=== PATIENT | male | born 1965 | race Caucasian/White ===

== ENCOUNTER 2017-02-16 17:12 | Emergency (ER) | payer BC ==
[2017-02-16 17:25] VITALS: BP 135/86
--- NOTE | 2017-02-16 17:42 | UC ---
Throat Pain/Nasal [place] HPI - HPI Summary HPI Summary: 1 week of worsening sinus pain, head congestion and fatigue - History of Current Complaint Chief Complaint: UCRespiratory Stated Complaint: SINUS CONGESTION Time Seen by Provider: 02/16/17 17:31 Hx Obtained From: Patient Onset/Duration: Gradual Onset, Lasting Weeks - 7, Worse Since - gatting worse every day Severity: Moderate Pain Intensity: 7 Pain Scale Used: 0-10 Numeric Cough: None Associated Signs & Symptoms: Positive: Sinus Discomfort Related History: Smoking - chews tobacco - Allergies/Home Medications Allergies/Adverse Reactions: Allergies Allergy/AdvReac Type Severity Reaction Status Date / Time Glipizide Allergy Rash and Verified 02/16/17 17:20 hives Penicillins [PCN] Allergy Rash and Verified 02/16/17 17:20 hives Procaine [From Novocain] Allergy Unknown Verified 02/16/17 17:20 Reaction Details PMH/Surg Hx/FS Hx/Imm Hx Previously Healthy: No Endocrine History: Diabetes, Dyslipidemia GI/ History: Gastroesophageal Reflux Psychological History: Depression - Surgical History Surgical History: None - Family History Known Family History: Positive: None - Social History Occupation: Employed Full-time Lives: With Family Alcohol Use: Occasionally Substance Use Type: None Smoking Status (MU): Never Smoked Tobacco Review of Systems Constitutional: Fatigue Skin: Negative Eyes: Negative ENT: Sinus Congestion, Sinus Pain/Tenderness Respiratory: Negative Cardiovascular: Negative Gastrointestinal: Negative Genitourinary: Negative Motor: Negative Neurovascular: Negative Musculoskeletal: Negative Neurological: Headache Psychological: Negative Is Patient Immunocompromised?: Yes - iddm All Other Systems Reviewed And Are Negative: Yes Physical Exam Triage Information Reviewed: Yes Appearance: No Pain Distress, Ill-Appearing - mild, Obese Vital Signs: Initial Vital Signs Temp 98 F 02/16/17 17:23 Pulse 92 02/16/17 17:23 Resp 18 02/16/17 17:23 BP 135/86 02/16/17 17:23 Pulse Ox 100 02/16/17 17:23 Vital Signs Reviewed: Yes Eye Exam: Normal Eyes: Positive: Conjunctiva Clear ENT Exam: Normal ENT: Positive: Normal ENT inspection, Hearing grossly normal, Pharynx normal, Nasal congestion, TMs normal. Negative: Nasal drainage, Tonsillar swelling, Tonsillar exudate, Trismus, Muffled/hoarse voice Dental Exam: Normal Neck exam: Normal Neck: Positive: Supple, Nontender Respiratory Exam: Normal Respiratory: Positive: Chest non-tender, Lungs clear, Normal breath sounds, No respiratory distress, No accessory muscle use Cardiovascular Exam: Normal Cardiovascular: Positive: RRR, No Murmur, Pulses Normal, Brisk Capillary Refill Musculoskeletal Exam: Normal Musculoskeletal: Positive: Strength Intact, ROM Intact, No Edema Neurological Exam: Normal Neurological: Positive: Alert, Muscle Tone Normal Psychological Exam: Normal Throat Pain/Nasal Course/Dx - Course Assessment/Plan: continue nasal spray, mucinex, decongestant, add Zithromax, follow blood sugars , follow with pcp - Differential Dx/Diagnosis Differential Diagnosis/HQI/PQRI: Influenza, Laryngitis, Peritonsillar Abscess, Pharyngitis, Sinusitis, URI Provider Diagnoses: Acute rhinosinusitis, nicotine dependent Discharge - Discharge Plan Condition: Stable Disposition: HOME Prescriptions: Azithromycin TAB* [Zithromax TAB (Z-MANUEL) 250 mg #6 tabs] 2 tab PO .TODAY, THEN 1 DAILY #1 manuel Patient Education Materials: Rhinosinusitis (ED), How to Use Nasal [place] (ED) Referrals: Alcides Reyes [employer] [Primary Care Provider] - If Needed
== END 2017-02-16 17:53 | disposition home or self-care (01) ==
LOC: UCEAST 17:12
DX: J01.90 Acute sinusitis, unspecified (principal); E11.9 Type 2 diabetes mellitus without complications; E78.5 Hyperlipidemia, unspecified; K21.9 Gastro-esophageal reflux disease without esophagitis; F32.9 Major depressive disorder, single episode, unspecified; F17.210 Nicotine dependence, cigarettes, uncomplicated; Z88.4 Allergy status to anesthetic agent; Z88.0 Allergy status to penicillin
CPT/HCPCS: 99212; G0463

== ENCOUNTER 2021-06-14 07:47 | Inpatient (IN) ==
[2021-06-14] MEDS ORDERED: NS 0.9% 1000 ml BAG 1,000 ML IV ONE (08:08)
[2021-06-14] MEDS ORDERED: NS 0.9% 1000 ml BAG 2,000 ML IV ONE (08:25)
[2021-06-14] MEDS ORDERED: Dextrose 50% Syringe 50 ml 25 GM/50 ML SYRINGE IV PUSH ONE (08:58)
[2021-06-14 09:00] LABS: PO2 Arterial 84 mmHg (80-100)
[2021-06-14] MEDS ORDERED: Dextrose 50% Syringe 50 ml 25 GM/50 ML SYRINGE ONE (09:00)
[2021-06-14 09:03] LABS: PCO2 Arterial <20 mmHg (35-45)
[2021-06-14 09:18] LABS: ABS Lymphocytes 0.4 10^3/ul (1.0-4.8); ABS Monocytes 0.8 10^3/ul (0-0.8); ABS Neutrophils 9.5 10^3/ul (1.5-7.7); Hematocrit 55 % (42-52); Hemoglobin 19.2 g/dL (14.0-18.0); Lymphocyte % 4.1 %; Mean Corpuscular HGB Conc 35 g/dL (31-36); Mean Corpuscular Hemoglobin 32 pg (27-31); Mean Corpuscular Volume 90 fL (80-94); Mean Platelet Volume 8.2 fL (7.4-10.4); Nucleated Red Blood Cells % 0.1; Platelet Count 229 10^3/uL (150-450); Red Cell Distribution Width 14 % (10-15); White Blood Count 10.8 10^3/uL (3.5-10.8)
[2021-06-14 09:26] LABS: Activated Partial Thrombo Time 28.3 seconds (26.0-38.0); INR 0.96 (0.86-1.15)
[2021-06-14 09:44] LABS: ALT 26 U/L (7-52); AST 43 U/L (13-39); Albumin 4.6 g/dL (3.2-5.2); Albumin/Globulin Ratio 1.1 (1-3); Alkaline Phosphatase 132 U/L (35-149); Blood Urea Nitrogen 48 mg/dL (6-24); Chloride 94 mmol/L (101-111); Globulin 4.2 g/dL (2-4); Glucose 296 mg/dL (70-100); Lipase 39 U/L (11.0-82.0); Magnesium 2.6 mg/dL (1.9-2.7); Sodium 131 mmol/L (135-145); Total Protein 8.8 g/dL (6.4-8.9); Troponin I 0.04 ng/mL (<0.03); eGFR CKD-EPI 34.5 (>60)
[2021-06-14 09:57] LABS: Anion Gap 24 mmol/L (2-11); CO2 Carbon Dioxide 13 mmol/L (22-32)
[2021-06-14] MEDS ORDERED: Dexamethasone IV 4 MG/ML VIAL 1 ml VIAL IV SLOW PU ONE (10:00)
[2021-06-14] MEDS ORDERED: Cefepime 1 GM in Dextrose 1 GM/50 ML BAG IV ONE (10:16)
[2021-06-14 10:28] LABS: TSH Ultra Thyroid Stim Horm 0.63 mcIU/mL (0.34-5.60)
[2021-06-14 10:44] LABS: Osmolality Serum 320 mOsm/kg (275-295)
[2021-06-14 11:01] LABS: Urine Benzodiazepine Screen None Detected (None Detect); Urine Cannabinoids Screen None Detected (None Detect); Urine Opiates Screen None Detected (None Detect)
[2021-06-14 11:05] LABS: Urine Appearance Clear; Urine Blood 2+ (Negative); Urine Color Yellow; Urine Ketones 1+ (Negative); Urine Nitrite Negative (Negative); Urine Protein 1+(30 mg/dL) (Negative); Urine Urobilinogen Negative (Negative); Urine pH 6 (5-9)
[2021-06-14 11:06] LABS: Urine Bilirubin Negative (Negative); Urine Glucose 2+(150 mg/dL) (Negative)
[2021-06-14 11:13] LABS: Urine Bacteria Absent (Absent); Urine Red Blood Cell Trace(0-2/hpf) (Absent); Urine White Blood Cell Trace(0-5/hpf) (Absent)
[2021-06-14] MEDS ORDERED: NORMOSOL-R pH 7.4 1000 mL BAG 1,000 ML IV ONE (13:21)
[2021-06-14] MEDS ORDERED: KCL 20 MEQ/100 ML IVPREMIX 20 MEQ/100 ML BAG IV ONE ×2 (13:48→13:59)
[2021-06-14] MEDS ORDERED: Insulin Infusion 100unit/100mL 100 UNIT/100 ML BAG IV SCH ×2 (14:00→19:25)
[2021-06-14] MEDS ORDERED: Lorazepam PYXIS KEY PRN ×2 (14:03→16:45)
[2021-06-14] MEDS ORDERED: LORazepam 2 mg VIAL 1 ml IV PUSH ONE ×2 (14:03→16:45)
[2021-06-14] MEDS ORDERED: Lorazepam PYXIS KEY ONE (14:29)
[2021-06-14] MEDS: Enoxaparin 40 MG/0.4 ML SYR SUBCUT SCH (14:31)
[2021-06-14 14:46] LABS: Albumin/Globulin Ratio 1.3 (1-3); Calcium 8.8 mg/dL (8.6-10.3); Globulin 3.2 g/dL (2-4); Magnesium 2.5 mg/dL (1.9-2.7); Phosphorus 1.8 mg/dL (2.5-5.0); Total Bilirubin 0.5 mg/dL (0.2-1.0); Total Protein 7.2 g/dL (6.4-8.9); eGFR CKD-EPI 41.7 (>60)
[2021-06-14 14:47] LABS: Troponin I 0.01 ng/mL (<0.03)
[2021-06-14] MEDS ORDERED: NORMOSOL-R pH 7.4 1000 mL BAG 1,000 ML IV SCH (15:00)
[2021-06-14 15:51] LABS: Hematocrit 48 % (42-52); Hemoglobin 16.9 g/dL (14.0-18.0); Mean Corpuscular HGB Conc 35 g/dL (31-36); Mean Corpuscular Hemoglobin 32 pg (27-31); Mean Corpuscular Volume 91 fL (80-94); Red Blood Count 5.34 10^6 /uL (4.18-5.48); Red Cell Distribution Width 14 % (10-15); White Blood Count 9.9 10^3/uL (3.5-10.8)
[2021-06-14] MEDS ORDERED: LORazepam 2 mg VIAL 1 ml ONE (16:31)
[2021-06-14] MEDS ORDERED: Potassium Phosphate IV 15 MMOLE in NS 0.9% 250 ml 250 ML IVPB ONE (17:00)
[2021-06-14] MEDS ORDERED: cefTRIAXone 1 gm/50 mL NS BAG 1 GM/50 ML BAG IVPB SCH (17:00)
[2021-06-14 17:08] LABS: PO2 Arterial 81 mmHg (80-100)
[2021-06-14 17:15] LABS: PCO2 Arterial <20 mmHg (35-45)
[2021-06-14 17:17] LABS: Urine Appearance Clear; Urine Bilirubin Negative (Negative); Urine Blood 2+ (Negative); Urine Color Yellow; Urine Glucose 3+(>=500 mg/dL) (Negative); Urine Ketones 2+ (Negative); Urine Nitrite Negative (Negative); Urine Protein 2+(100 mg/dL) (Negative); Urine Specific Gravity 1.026 (1.002-1.030); Urine Urobilinogen Negative (Negative)
[2021-06-14 17:38] LABS: ABS Lymphocytes 0.4 10^3/ul (1.0-4.8); ABS Monocytes 0.7 10^3/ul (0-0.8); ABS Neutrophils 8.8 10^3/ul (1.5-7.7); Lymphocyte % 4.1 %; Mean Platelet Volume 8.7 fL (7.4-10.4); Nucleated Red Blood Cells % 0.3; Platelet Count 200 10^3/uL (150-450)
[2021-06-14 17:51] LABS: Urine Bacteria Absent (Absent); Urine Red Blood Cell 1+(3-5/hpf) (Absent); Urine White Blood Cell Trace(0-5/hpf) (Absent)
[2021-06-14] MEDS: cefTRIAXone 1 gm/50 mL NS BAG 1 GM/50 ML BAG IVPB SCH (18:09)
[2021-06-14 18:41] LABS: Magnesium 2.6 mg/dL (1.9-2.7); Phosphorus 1.6 mg/dL (2.5-5.0); Potassium 3.5 mmol/L (3.5-5.0); eGFR CKD-EPI 43.3 (>60)
[2021-06-14 18:56] LABS: Calcium 9.1 mg/dL (8.6-10.3)
[2021-06-14] MEDS: Azithromycin 500 mg/250 ml NS 500 MG/250 ML BAG IVPB SCH (19:31)
[2021-06-14] MEDS: Saline FLUSH-CENTRAL 10 ML SYRINGE CENT\\PICC SCH (19:59)
[2021-06-14] MEDS ORDERED: D5W 1/2 NS 40 Meq KCL 1000 ml 1,000 ML IV SCH (20:00)
[2021-06-14] MEDS ORDERED: D5W 1/4 NS 20 Meq KCL 1000 ml 1,000 ML IV SCH (20:00)
[2021-06-14] MEDS: KCL 20 MEQ/100 ML IVPREMIX 20 MEQ/100 ML BAG IV SCH ×2 (20:46→23:23)
[2021-06-14 22:06] LABS: Calcium 8.9 mg/dL (8.6-10.3); Magnesium 2.7 mg/dL (1.9-2.7); Phosphorus 2.6 mg/dL (2.5-5.0); Potassium 3.5 mmol/L (3.5-5.0); eGFR CKD-EPI 44.8 (>60)
[2021-06-14] MEDS: Insulin Infusion 100unit/100mL 100 UNIT/100 ML BAG IV SCH (23:27)
[2021-06-15] MEDS: KCL 20 MEQ/100 ML IVPREMIX 20 MEQ/100 ML BAG IV SCH ×4 (01:33→08:46)
[2021-06-15 01:47] LABS: Calcium 9.2 mg/dL (8.6-10.3); Magnesium 2.8 mg/dL (1.9-2.7); Phosphorus 2.6 mg/dL (2.5-5.0); Potassium 3.4 mmol/L (3.5-5.0); eGFR CKD-EPI 43.6 (>60)
[2021-06-15] MEDS ORDERED: D10W 1000 ml BAG 1,000 ML IV SCH ×3 (03:00→07:29)
[2021-06-15] MEDS: Dextrose 50% Syringe 50 ml 25 GM/50 ML SYRINGE IV PUSH PRN ×2 (03:29→08:23)
[2021-06-15 05:26] LABS: ABS Lymphocytes 0.6 10^3/ul (1.0-4.8); ABS Neutrophils 8.1 10^3/ul (1.5-7.7); Hematocrit 52 % (42-52); Hemoglobin 17.6 g/dL (14.0-18.0); Mean Corpuscular HGB Conc 34 g/dL (31-36); Mean Corpuscular Hemoglobin 31 pg (27-31); Mean Corpuscular Volume 92 fL (80-94); Mean Platelet Volume 8.3 fL (7.4-10.4); Nucleated Red Blood Cells % 0.3; Platelet Count 195 10^3/uL (150-450); Red Blood Count 5.61 10^6 /uL (4.18-5.48); Red Cell Distribution Width 14 % (10-15); White Blood Count 9.7 10^3/uL (3.5-10.8)
[2021-06-15 05:37] LABS: Albumin 3.9 g/dL (3.2-5.2); Albumin/Globulin Ratio 1.2 (1-3); Calcium 9.1 mg/dL (8.6-10.3); Globulin 3.3 g/dL (2-4); Magnesium 2.7 mg/dL (1.9-2.7); Phosphorus 1.6 mg/dL (2.5-5.0); Potassium 3.5 mmol/L (3.5-5.0); Total Bilirubin 0.4 mg/dL (0.2-1.0); Total Protein 7.2 g/dL (6.4-8.9)
[2021-06-15] MEDS ORDERED: Potassium Phosphate IV 15 MMOLE in NS 0.9% 250 ml 250 ML IVPB ONE (05:38)
[2021-06-15] MEDS: Insulin Infusion 100unit/100mL 100 UNIT/100 ML BAG IV SCH (06:45)
[2021-06-15] MEDS: Saline FLUSH-CENTRAL 10 ML SYRINGE CENT\\PICC SCH ×2 (08:40→20:34)
[2021-06-15] MEDS ORDERED: DULoxetine DR 60 mg CAP PO SCH (09:00)
[2021-06-15 09:04] LABS: PCO2 Arterial 24 mmHg (35-45); PO2 Arterial 76 mmHg (80-100)
[2021-06-15 09:06] LABS: Blood Urea Nitrogen 28 mg/dL (6-24); Chloride 80 mmol/L (101-111); Magnesium 1.5 mg/dL (1.9-2.7); Phosphorus 15.7 mg/dL (2.5-5.0); eGFR CKD-EPI 73.6 (>60)
[2021-06-15 09:13] LABS: Anion Gap 9 mmol/L (2-11); CO2 Carbon Dioxide 9 mmol/L (22-32); Calcium 4.9 mg/dL (8.6-10.3); Potassium 8.4 mmol/L (3.5-5.0); Sodium 98 mmol/L (135-145)
[2021-06-15 09:26] LABS: Glucose > 2400 mg/dL (70-100); Glucose Confirmatory > 2400 mg/dL (70-100)
[2021-06-15 10:05] LABS: ABS Lymphocytes 0.6 10^3/ul (1.0-4.8); ABS Monocytes 1.5 10^3/ul (0-0.8); ABS Neutrophils 9.1 10^3/ul (1.5-7.7); Hematocrit 49 % (42-52); Lymphocyte % 5.5 %; Mean Corpuscular HGB Conc 35 g/dL (31-36); Mean Corpuscular Hemoglobin 31 pg (27-31); Mean Corpuscular Volume 90 fL (80-94); Mean Platelet Volume 8.1 fL (7.4-10.4); Nucleated Red Blood Cells % 0.1; Platelet Count 220 10^3/uL (150-450); Red Blood Count 5.45 10^6 /uL (4.18-5.48); Red Cell Distribution Width 14 % (10-15); White Blood Count 11.3 10^3/uL (3.5-10.8)
[2021-06-15 10:18] LABS: Albumin 3.9 g/dL (3.2-5.2); Albumin/Globulin Ratio 1.1 (1-3); Calcium 9.4 mg/dL (8.6-10.3); Globulin 3.4 g/dL (2-4); Magnesium 2.7 mg/dL (1.9-2.7); Potassium 3.1 mmol/L (3.5-5.0); Total Bilirubin 0.5 mg/dL (0.2-1.0); Total Protein 7.3 g/dL (6.4-8.9); eGFR CKD-EPI 49.1 (>60)
[2021-06-15] MEDS ORDERED: KCL 20 MEQ/100 ML IVPREMIX 20 MEQ/100 ML BAG IV ONE (10:30)
[2021-06-15] MEDS ORDERED: Dextrose 50% Syringe 50 ml 25 GM/50 ML SYRINGE IV PUSH ONE (10:36)
[2021-06-15] MEDS ORDERED: Insulin GLARGINE 100 un/ml 10 ml VIAL SUBCUT ONE ×2 (10:38→17:30)
[2021-06-15] MEDS: Enoxaparin 40 MG/0.4 ML SYR SUBCUT SCH (11:16)
[2021-06-15] MEDS ORDERED: Rocuronium 50 mg VIAL 10 mg/ml 5 ml VIAL (50 mg) ONE (14:41)
[2021-06-15 14:51] LABS: CO2 Carbon Dioxide 16 mmol/L (22-32); Calcium 8.7 mg/dL (8.6-10.3); Chloride 109 mmol/L (101-111); Magnesium 2.8 mg/dL (1.9-2.7); Sodium 140 mmol/L (135-145)
[2021-06-15 14:57] LABS: Blood Urea Nitrogen 41 mg/dL (6-24); Glucose 221 mg/dL (70-100); eGFR CKD-EPI 50.9 (>60)
[2021-06-15] MEDS ORDERED: Etomidate 40 mg/20 ml (2 MG/ML) 20 ml VIAL (40 mg) ONE (15:00)
[2021-06-15] MEDS ORDERED: Propofol 10 MG/ML 20 ML BTL ONE (15:00)
[2021-06-15 15:13] LABS: Anion Gap 15 mmol/L (2-11)
[2021-06-15] MEDS: fentaNYL 100 mcg/2 ml 50 MCG/ML VIAL IV SLOW PU PRN ×2 (15:56→20:23)
[2021-06-15] MEDS: Azithromycin 500 mg/250 ml NS 500 MG/250 ML BAG IVPB SCH (15:57)
[2021-06-15 16:09] LABS: Potassium, Whole Blood 4.7 mmol/L (3.4-4.5)
[2021-06-15] MEDS: cefTRIAXone 1 gm/50 mL NS BAG 1 GM/50 ML BAG IVPB SCH (16:43)
[2021-06-15] MEDS ORDERED: Dextrose 50% Syringe 50 ml 25 GM/50 ML SYRINGE IV PUSH PRN (17:29)
[2021-06-15] MEDS: Pantoprazole VIAL 40 MG VIAL IV SCH (17:54)
[2021-06-15] MEDS: Chlorhexidine MOUTHWASH 0.12% 15 ML UDC SWISH SPIT SCH ×2 (17:54→22:49)
[2021-06-15 20:54] LABS: Potassium 3.8 mmol/L (3.5-5.0); eGFR CKD-EPI 49.5 (>60)
[2021-06-15] MEDS: D5W 1/2 NS 1000 ml BAG 1,000 ML IV SCH (22:14)
[2021-06-15] MEDS: Insulin Infusion 100unit/100mL 100 UNIT/100 ML BAG IV ONE (22:42)
[2021-06-15] MEDS: methylPREDNISolone SOD 40 mg/ml 1 ml VIAL IV SCH (22:49)
[2021-06-16] MEDS: Insulin Infusion 100unit/100mL 100 UNIT/100 ML BAG IV ONE (02:33)
[2021-06-16] MEDS: Chlorhexidine MOUTHWASH 0.12% 15 ML UDC SWISH SPIT SCH ×6 (02:33→22:12)
[2021-06-16 02:38] LABS: Calcium 9.2 mg/dL (8.6-10.3); Potassium 3.3 mmol/L (3.5-5.0); eGFR CKD-EPI 52.5 (>60)
[2021-06-16] MEDS ORDERED: KCL 20 MEQ/100 ML IVPREMIX 20 MEQ/100 ML BAG IV ONE (03:35)
[2021-06-16] MEDS: D5W 1/2 NS 1000 ml BAG 1,000 ML IV SCH ×2 (05:10→10:43)
[2021-06-16] MEDS: methylPREDNISolone SOD 40 mg/ml 1 ml VIAL IV SCH ×2 (05:16→14:23)
[2021-06-16 06:05] LABS: ABS Lymphocytes 0.5 10^3/ul (1.0-4.8); ABS Monocytes 0.7 10^3/ul (0-0.8); ABS Neutrophils 8.6 10^3/ul (1.5-7.7); Hematocrit 46 % (42-52); Hemoglobin 16.1 g/dL (14.0-18.0); Mean Corpuscular HGB Conc 35 g/dL (31-36); Mean Corpuscular Hemoglobin 31 pg (27-31); Mean Corpuscular Volume 90 fL (80-94); Mean Platelet Volume 8.1 fL (7.4-10.4); Nucleated Red Blood Cells % 0.3; Platelet Count 213 10^3/uL (150-450); Red Blood Count 5.14 10^6 /uL (4.18-5.48); Red Cell Distribution Width 15 % (10-15); White Blood Count 9.8 10^3/uL (3.5-10.8)
[2021-06-16 06:30] LABS: Blood Urea Nitrogen 41 mg/dL (6-24); CO2 Carbon Dioxide 17 mmol/L (22-32); Glucose 186 mg/dL (70-100); Potassium 3.6 mmol/L (3.5-5.0); Sodium 140 mmol/L (135-145); eGFR CKD-EPI 54.6 (>60)
[2021-06-16 06:37] LABS: Anion Gap 9 mmol/L (2-11); Chloride 114 mmol/L (101-111)
[2021-06-16] MEDS: Midazolam 50 MG VIAL IV DRIP 50 ML IV SCH ×2 (07:05→16:24)
[2021-06-16 07:53] LABS: Magnesium 2.7 mg/dL (1.9-2.7)
[2021-06-16] MEDS ORDERED: Potassium Phosphate IV 15 MMOLE in NS 0.9% 250 ml 250 ML IVPB ONE (07:58)
[2021-06-16] MEDS ORDERED: Perflutren Lipid Microsphere 3 ML VIAL ONE (08:04)
[2021-06-16] MEDS ORDERED: Potassium Chlor 20 meq TAB.ER PO ONE (08:07)
[2021-06-16] MEDS ORDERED: Dextrose 50% Syringe 50 ml 25 GM/50 ML SYRINGE IV PUSH ONE (08:08)
[2021-06-16] MEDS ORDERED: Insulin GLARGINE 100 un/ml 10 ml VIAL SUBCUT ONE (08:09)
[2021-06-16] MEDS: KCL 20 MEQ/100 ML IVPREMIX 20 MEQ/100 ML BAG IV SCH ×2 (08:29→10:58)
[2021-06-16] MEDS: Saline FLUSH-CENTRAL 10 ML SYRINGE CENT\\PICC SCH ×2 (08:29→21:12)
[2021-06-16 08:42] LABS: Phosphorus < 1.0 mg/dL (2.5-5.0)
[2021-06-16 10:47] LABS: PCO2 Arterial 29 mmHg (35-45); PO2 Arterial 104 mmHg (80-100)
[2021-06-16] MEDS: fentaNYL 100 mcg/2 ml 50 MCG/ML VIAL IV SLOW PU PRN ×5 (10:56→22:30)
[2021-06-16] MEDS ORDERED: Insulin Infusion 100unit/100mL 100 UNIT/100 ML BAG IV SCH (11:00)
[2021-06-16] MEDS: Enoxaparin 40 MG/0.4 ML SYR SUBCUT SCH (12:23)
[2021-06-16 13:54] LABS: Calcium 7.7 mg/dL (8.6-10.3); Potassium 3.7 mmol/L (3.5-5.0)
[2021-06-16 14:53] LABS: Urine Appearance Turbid; Urine Bilirubin Negative (Negative); Urine Blood 2+ (Negative); Urine Color Yellow; Urine Glucose 3+(>=500 mg/dL) (Negative); Urine Ketones Negative (Negative); Urine Nitrite Negative (Negative); Urine Protein 1+(30 mg/dL) (Negative); Urine Specific Gravity 1.033 (1.002-1.030); Urine Urobilinogen Negative (Negative)
[2021-06-16 14:59] LABS: Urine Bacteria Absent (Absent); Urine Red Blood Cell 3+(>10/hpf) (Absent); Urine Squamous Epithelial Cell Present (Absent); Urine White Blood Cell Trace(0-5/hpf) (Absent)
[2021-06-16] MEDS: cefTRIAXone 1 gm/50 mL NS BAG 1 GM/50 ML BAG IVPB SCH (17:35)
[2021-06-16] MEDS: Azithromycin 500 mg/250 ml NS 500 MG/250 ML BAG IVPB SCH (17:36)
[2021-06-16] MEDS: Pantoprazole VIAL 40 MG VIAL IV SCH (17:36)
[2021-06-16] MEDS ORDERED: Dextrose 50% Syringe 50 ml 25 GM/50 ML SYRINGE IV PUSH PRN (22:20)
[2021-06-17] MEDS: fentaNYL 100 mcg/2 ml 50 MCG/ML VIAL IV SLOW PU PRN (00:25)
[2021-06-17] MEDS ORDERED: Dexmedetomidine 1,000 MCG in NS 0.9% 250 ml 240 ML IV SCH (02:00)
[2021-06-17] MEDS: Midazolam 50 MG VIAL IV DRIP 50 ML IV SCH (02:04)
[2021-06-17] MEDS: Chlorhexidine MOUTHWASH 0.12% 15 ML UDC SWISH SPIT SCH ×6 (02:32→20:47)
[2021-06-17 04:33] LABS: ABS Lymphocytes 0.5 10^3/ul (1.0-4.8); ABS Monocytes 1.3 10^3/ul (0-0.8); ABS Neutrophils 12.1 10^3/ul (1.5-7.7); Hematocrit 41 % (42-52); Hemoglobin 13.9 g/dL (14.0-18.0); Lymphocyte % 3.6 %; Mean Corpuscular HGB Conc 34 g/dL (31-36); Mean Corpuscular Hemoglobin 31 pg (27-31); Mean Corpuscular Volume 92 fL (80-94); Mean Platelet Volume 8.7 fL (7.4-10.4); Platelet Count 214 10^3/uL (150-450); Red Blood Count 4.43 10^6 /uL (4.18-5.48); Red Cell Distribution Width 15 % (10-15)
[2021-06-17 04:52] LABS: Calcium 8.6 mg/dL (8.6-10.3); Magnesium 2.5 mg/dL (1.9-2.7); eGFR CKD-EPI 42.8 (>60)
[2021-06-17 05:20] LABS: Potassium 4.8 mmol/L (3.5-5.0)
[2021-06-17 05:35] LABS: Phosphorus 1.8 mg/dL (2.5-5.0)
[2021-06-17] MEDS: Saline FLUSH-CENTRAL 10 ML SYRINGE CENT\\PICC SCH ×2 (07:41→20:49)
[2021-06-17] MEDS: methylPREDNISolone SOD 40 mg/ml 1 ml VIAL IV SCH (07:42)
[2021-06-17] MEDS ORDERED: Insulin GLARGINE 100 un/ml 10 ml VIAL SUBCUT ONE (09:05)
[2021-06-17] MEDS ORDERED: Propofol 10 MG/ML 20 ML BTL ONE (10:16)
[2021-06-17] MEDS ORDERED: Propofol 10 MG/ML 20 ML BTL IV PUSH ONE (10:45)
[2021-06-17] MEDS ORDERED: Potassium Phosphate IV 15 MMOLE in NS 0.9% 250 ml 250 ML IVPB ONE (11:00)
[2021-06-17] MEDS: Enoxaparin 40 MG/0.4 ML SYR SUBCUT SCH (12:40)
[2021-06-17] MEDS ORDERED: Propofol 10 mg/ml 100 ML BTL 100 ML ONE (16:10)
[2021-06-17] MEDS: Propofol 10 mg/ml 100 ML BTL 100 ML IV SCH ×2 (16:15→21:36)
[2021-06-17] MEDS: Azithromycin 500 mg/250 ml NS 500 MG/250 ML BAG IVPB SCH (16:54)
[2021-06-17] MEDS: Pantoprazole VIAL 40 MG VIAL IV SCH (17:46)
[2021-06-17] MEDS: cefTRIAXone 1 gm/50 mL NS BAG 1 GM/50 ML BAG IVPB SCH (18:14)
[2021-06-17] MEDS ORDERED: Insulin GLARGINE 100 un/ml 10 ml VIAL SUBCUT SCH (21:00)
[2021-06-17 23:57] LABS: Anaplasma phagocytophilum Negative (Negative); B. miyamotoi PCR, B Negative (Negative); Babesia divergens/MO-1 Negative (Negative); Babesia ducani Negative (Negative); Ehrlichia chaffeensis Negative (Negative); Ehrlichia ewingii/canis Negative (Negative); Ehrlichia muris eauclairensis Negative (Negative)
[2021-06-18] MEDS: Chlorhexidine MOUTHWASH 0.12% 15 ML UDC SWISH SPIT SCH ×6 (00:16→20:04)
[2021-06-18] MEDS: Acetaminophen IV 1 GM/100ML 100 ML IV PRN (00:16)
[2021-06-18] MEDS ORDERED: NS 0.9% 1000 ml BAG 1,000 ML IV SCH (03:45)
[2021-06-18] MEDS: Propofol 10 mg/ml 100 ML BTL 100 ML IV SCH ×5 (03:51→19:53)
[2021-06-18 05:00] LABS: Hematocrit 39 % (42-52); Hemoglobin 13.4 g/dL (14.0-18.0); Mean Corpuscular HGB Conc 34 g/dL (31-36); Mean Corpuscular Hemoglobin 31 pg (27-31); Mean Corpuscular Volume 91 fL (80-94); Platelet Count 220 10^3/uL (150-450); Red Cell Distribution Width 14 % (10-15); White Blood Count 10.8 10^3/uL (3.5-10.8)
[2021-06-18 05:06] LABS: ABS Lymphocytes 0.6 10^3/ul (1.0-4.8); ABS Monocytes 1.4 10^3/ul (0-0.8); ABS Neutrophils 8.7 10^3/ul (1.5-7.7); Eosinophil % 0.1 %; Lymphocyte % 5.8 %
[2021-06-18 05:16] LABS: Calcium 8.8 mg/dL (8.6-10.3); Magnesium 2.5 mg/dL (1.9-2.7); Potassium 4.2 mmol/L (3.5-5.0); eGFR CKD-EPI 37.6 (>60)
[2021-06-18] MEDS: methylPREDNISolone SOD 40 mg/ml 1 ml VIAL IV SCH (08:00)
[2021-06-18] MEDS: Saline FLUSH-CENTRAL 10 ML SYRINGE CENT\\PICC SCH ×2 (08:00→20:02)
[2021-06-18 11:59] LABS: Myoglobin 178.2 ng/mL (17.4-105.7)
[2021-06-18] MEDS ORDERED: Alteplase (CATHFLO) 2 MG VIAL IV ONE ×2 (13:58→13:59)
[2021-06-18] MEDS: cefTRIAXone 1 gm/50 mL NS BAG 1 GM/50 ML BAG IVPB SCH (17:38)
[2021-06-18] MEDS: Azithromycin 500 mg/250 ml NS 500 MG/250 ML BAG IVPB SCH (17:38)
[2021-06-18] MEDS: Pantoprazole VIAL 40 MG VIAL IV SCH (17:53)
[2021-06-18] MEDS: Enoxaparin 100 MG/ML SYR SUBCUT SCH (20:00)
[2021-06-18] MEDS: Insulin GLARGINE 100 un/ml 10 ml VIAL SUBCUT SCH (20:01)
[2021-06-18] MEDS ORDERED: Thiamine 100 MG/ML 2 ml VIAL 500 MG in NS 0.9% 250 ml 250 ML IV ONE (22:34)
[2021-06-19] MEDS: fentaNYL 100 mcg/2 ml 50 MCG/ML VIAL IV SLOW PU PRN ×6 (00:19→22:26)
[2021-06-19] MEDS: Chlorhexidine MOUTHWASH 0.12% 15 ML UDC SWISH SPIT SCH ×6 (00:26→22:26)
[2021-06-19] MEDS: Propofol 10 mg/ml 100 ML BTL 100 ML IV SCH ×9 (01:18→22:41)
[2021-06-19 05:35] LABS: Hematocrit 38 % (42-52); Hemoglobin 13.4 g/dL (14.0-18.0); Mean Corpuscular HGB Conc 35 g/dL (31-36); Mean Corpuscular Hemoglobin 33 pg (27-31); Mean Corpuscular Volume 94 fL (80-94); Mean Platelet Volume 8.4 fL (7.4-10.4); Platelet Count 246 10^3/uL (150-450); Red Blood Count 4.05 10^6 /uL (4.18-5.48); Red Cell Distribution Width 14 % (10-15); White Blood Count 11.8 10^3/uL (3.5-10.8)
[2021-06-19 05:52] LABS: Blood Urea Nitrogen 58 mg/dL (6-24); C Reactive Protein 3.69 mg/L (<8.01); CO2 Carbon Dioxide 19 mmol/L (22-32); Calcium 8.4 mg/dL (8.6-10.3); Chloride 111 mmol/L (101-111); Glucose 216 mg/dL (70-100); Sodium 138 mmol/L (135-145); eGFR CKD-EPI 59.9 (>60)
[2021-06-19 06:01] LABS: Anion Gap 8 mmol/L (2-11)
[2021-06-19 06:08] LABS: RBC Morphology Normal (Normal)
[2021-06-19 06:09] LABS: ABS Basophils 0.1 10^3/ul (0-0.2); ABS Eosinophils 0.1 10^3/ul (0-0.6); ABS Monocytes 1.5 10^3/ul (0-0.8); ABS Neutrophils 9.1 10^3/ul (1.5-7.7); ABS Nucleated RBC 0.1 10^3/ul; Eosinophil % 1.1 %; Lymphocyte % 8.6 %; Nucleated Red Blood Cells % 0.4
[2021-06-19 06:16] LABS: Potassium, Whole Blood 5.3 mmol/L (3.4-4.5)
[2021-06-19 06:24] LABS: Salicylate < 2.50 mg/dL (<30)
[2021-06-19 06:43] LABS: Free T4 0.85 ng/dL (0.61-1.12)
[2021-06-19] MEDS: methylPREDNISolone SOD 40 mg/ml 1 ml VIAL IV SCH (07:44)
[2021-06-19] MEDS: Saline FLUSH-CENTRAL 10 ML SYRINGE CENT\\PICC SCH ×2 (07:44→20:00)
[2021-06-19] MEDS: Enoxaparin 100 MG/ML SYR SUBCUT SCH ×2 (07:44→20:00)
[2021-06-19] MEDS: Acetaminophen IV 1 GM/100ML 100 ML IV PRN ×2 (08:48→22:26)
[2021-06-19] MEDS ORDERED: Furosemide 100 mg/10 ml IV VIAL IV ONE (10:45)
[2021-06-19] MEDS ORDERED: Dexmedetomidine 1,000 MCG in NS 0.9% 250 ml 240 ML IV SCH (14:00)
[2021-06-19] MEDS: Pantoprazole VIAL 40 MG VIAL IV SCH (17:33)
[2021-06-19] MEDS: cefTRIAXone 1 gm/50 mL NS BAG 1 GM/50 ML BAG IVPB SCH (17:39)
[2021-06-19] MEDS: Insulin GLARGINE 100 un/ml 10 ml VIAL SUBCUT SCH (20:01)
[2021-06-20] MEDS: Propofol 10 mg/ml 100 ML BTL 100 ML IV SCH ×3 (01:10→07:27)
[2021-06-20] MEDS: Chlorhexidine MOUTHWASH 0.12% 15 ML UDC SWISH SPIT SCH ×3 (02:21→08:34)
[2021-06-20] MEDS: fentaNYL 100 mcg/2 ml 50 MCG/ML VIAL IV SLOW PU PRN ×2 (03:34→06:01)
[2021-06-20 05:04] LABS: Hematocrit 36 % (42-52); Hemoglobin 12.5 g/dL (14.0-18.0); Mean Corpuscular HGB Conc 34 g/dL (31-36); Mean Corpuscular Hemoglobin 32 pg (27-31); Mean Corpuscular Volume 92 fL (80-94); Mean Platelet Volume 8.2 fL (7.4-10.4); Platelet Count 214 10^3/uL (150-450); Red Blood Count 3.95 10^6 /uL (4.18-5.48); Red Cell Distribution Width 14 % (10-15); White Blood Count 10.6 10^3/uL (3.5-10.8)
[2021-06-20 05:23] LABS: Calcium 8.5 mg/dL (8.6-10.3); eGFR CKD-EPI 52.1 (>60)
[2021-06-20 05:40] LABS: ABS Eosinophils 0.1 10^3/ul (0-0.6); ABS Lymphocytes 1.3 10^3/ul (1.0-4.8); ABS Monocytes 1.4 10^3/ul (0-0.8); ABS Neutrophils 7.8 10^3/ul (1.5-7.7); Eosinophil % 0.6 %; Lymphocyte % 12.7 %; Nucleated Red Blood Cells % 0.1
[2021-06-20 06:06] LABS: Potassium 3.9 mmol/L (3.5-5.0)
[2021-06-20] MEDS ORDERED: Furosemide 40 mg/4 ml IV VIAL IV SLOW PU ONE (08:25)
[2021-06-20] MEDS ORDERED: Polyethylene Glycol 3350 17 GM PACKET PO PRN (08:25)
[2021-06-20] MEDS: Saline FLUSH-CENTRAL 10 ML SYRINGE CENT\\PICC SCH ×2 (08:34→19:52)
[2021-06-20] MEDS: methylPREDNISolone SOD 40 mg/ml 1 ml VIAL IV SCH (08:34)
[2021-06-20] MEDS: Enoxaparin 100 MG/ML SYR SUBCUT SCH ×2 (08:34→19:51)
[2021-06-20] MEDS: Acetaminophen IV 1 GM/100ML 100 ML IV PRN (12:56)
[2021-06-20 15:25] LABS: Blood Urea Nitrogen 57 mg/dL (6-24); CO2 Carbon Dioxide 24 mmol/L (22-32); Calcium 8.9 mg/dL (8.6-10.3); Chloride 105 mmol/L (101-111); Glucose 224 mg/dL (70-100); Sodium 139 mmol/L (135-145); eGFR CKD-EPI 59.4 (>60)
[2021-06-20 15:30] LABS: Anion Gap 10 mmol/L (2-11)
[2021-06-20] MEDS ORDERED: guaiFENesin 100 mg/5 ml LIQ unit dose cup PO PRN (16:36)
[2021-06-20] MEDS ORDERED: Benzocaine/Menthol LOZ PO PRN (16:48)
[2021-06-20] MEDS: Pantoprazole VIAL 40 MG VIAL IV SCH (16:49)
[2021-06-20] MEDS: cefTRIAXone 1 gm/50 mL NS BAG 1 GM/50 ML BAG IVPB SCH (16:56)
[2021-06-20 17:45] LABS: Potassium, Whole Blood 4.2 mmol/L (3.4-4.5)
[2021-06-20] MEDS: Insulin GLARGINE 100 un/ml 10 ml VIAL SUBCUT SCH (19:52)
[2021-06-21 04:37] LABS: Hematocrit 39 % (42-52); Hemoglobin 13.2 g/dL (14.0-18.0); Mean Corpuscular HGB Conc 34 g/dL (31-36); Mean Corpuscular Hemoglobin 32 pg (27-31); Mean Corpuscular Volume 93 fL (80-94); Platelet Count 186 10^3/uL (150-450); Red Blood Count 4.17 10^6 /uL (4.18-5.48); Red Cell Distribution Width 14 % (10-15); White Blood Count 10.5 10^3/uL (3.5-10.8)
[2021-06-21 04:53] LABS: Calcium 8.2 mg/dL (8.6-10.3); Potassium 3.4 mmol/L (3.5-5.0); eGFR CKD-EPI 74.4 (>60)
[2021-06-21 04:57] LABS: RBC Morphology Normal (Normal)
[2021-06-21 04:58] LABS: ABS Eosinophils 0.2 10^3/ul (0-0.6); ABS Lymphocytes 1.9 10^3/ul (1.0-4.8); ABS Monocytes 1.3 10^3/ul (0-0.8); ABS Neutrophils 7.1 10^3/ul (1.5-7.7); Eosinophil % 1.7 %; Lymphocyte % 17.9 %; Nucleated Red Blood Cells % 0.2
[2021-06-21] MEDS ORDERED: Potassium Chlor 20 meq TAB.ER PO ONE (05:00)
[2021-06-21 08:59] LABS: Magnesium 1.7 mg/dL (1.9-2.7); Phosphorus 4.3 mg/dL (2.5-5.0)
[2021-06-21] MEDS: Saline FLUSH-CENTRAL 10 ML SYRINGE CENT\\PICC SCH (09:22)
[2021-06-21] MEDS: Enoxaparin 100 MG/ML SYR SUBCUT SCH ×2 (09:22→22:41)
[2021-06-21] MEDS ORDERED: Magnesium Sulfate IV 3 GM in NS 0.9% 100 ml BAG 100 ML IVPB ONE (10:07)
[2021-06-21] MEDS: Pantoprazole VIAL 40 MG VIAL IV SCH (17:21)
[2021-06-21] MEDS: cefTRIAXone 1 gm/50 mL NS BAG 1 GM/50 ML BAG IVPB SCH (18:47)
[2021-06-21] MEDS: Insulin GLARGINE 100 un/ml 10 ml VIAL SUBCUT SCH (22:41)
[2021-06-22 07:49] LABS: Blood Urea Nitrogen 26 mg/dL (6-24); CO2 Carbon Dioxide 25 mmol/L (22-32); Calcium 8.8 mg/dL (8.6-10.3); Chloride 103 mmol/L (101-111); Glucose 136 mg/dL (70-100); Sodium 137 mmol/L (135-145)
[2021-06-22] MEDS: Saline FLUSH-CENTRAL 10 ML SYRINGE CENT\\PICC SCH ×2 (08:01→08:20)
[2021-06-22] MEDS: Enoxaparin 100 MG/ML SYR SUBCUT SCH (08:43)
[2021-06-22 09:32] LABS: Anion Gap 9 mmol/L (2-11)
[2021-06-22 12:20] VITALS: BP 121/78
[2021-06-22] MEDS ORDERED: Insulin GLARGINE 100 un/ml 10 ml VIAL SUBCUT SCH (21:00)
== END 2021-06-22 13:00 | DRG 130 ==
LOC: ED 07:47 → ICU 12:21 → SUATTDRO 12:21 → ICU 13:35 → MEDTELE 06-21 13:55 → PMRU 06-22 13:53
PROVIDERS: ADMIT Internal Medicine; ATTEND Internal Medicine

== ENCOUNTER 2021-06-22 11:56 | Inpatient (IN) ==
[2021-06-22] MEDS ORDERED: Senna TAB 8.6 mg TAB PO PRN (15:12)
[2021-06-22] MEDS ORDERED: Magnesium Hydroxide LIQ 30 ML UDC PO PRN (15:12)
[2021-06-22] MEDS ORDERED: Dextrose 50% Syringe 50 ml 25 GM/50 ML SYRINGE IV PUSH PRN (15:37)
[2021-06-22] MEDS: cefTRIAXone 1 gm/50 mL NS BAG 1 GM/50 ML BAG IVPB SCH (17:48)
[2021-06-22] MEDS: Insulin GLARGINE 100 un/ml 10 ml VIAL SUBCUT SCH (21:17)
[2021-06-23 08:38] LABS: Hematocrit 48 % (42-52); Hemoglobin 15.4 g/dL (14.0-18.0); Mean Corpuscular HGB Conc 32 g/dL (31-36); Mean Corpuscular Hemoglobin 32 pg (27-31); Mean Corpuscular Volume 100 fL (80-94); Red Blood Count 4.78 10^6 /uL (4.18-5.48); Red Cell Distribution Width 14 % (10-15); White Blood Count 5.8 10^3/uL (3.5-10.8)
[2021-06-23] MEDS ORDERED: Flu vaccine *QUAD* 2021-22* 0.5 ML SYRINGE IM ONE (09:00)
[2021-06-23 09:20] LABS: ABS Eosinophils 0.1 10^3/ul (0-0.6); ABS Monocytes 0.6 10^3/ul (0-0.8); ABS Neutrophils 4.1 10^3/ul (1.5-7.7); Eosinophil % 1.3 %; Lymphocyte % 16.8 %; Mean Platelet Volume 8.4 fL (7.4-10.4); Nucleated Red Blood Cells % 0.2; Platelet Count 94 10^3/uL (150-450)
[2021-06-23 09:31] LABS: Albumin 3.5 g/dL (3.2-5.2); CO2 Carbon Dioxide 18 mmol/L (22-32); Calcium 8.8 mg/dL (8.6-10.3); Chloride 103 mmol/L (101-111); Sodium 134 mmol/L (135-145)
[2021-06-23 09:37] LABS: ALT 217 U/L (7-52); Alkaline Phosphatase 112 U/L (35-149); Anion Gap 13 mmol/L (2-11); Blood Urea Nitrogen 18 mg/dL (6-24); Globulin 3.5 g/dL (2-4); Glucose 119 mg/dL (70-100)
[2021-06-23 10:34] LABS: Potassium Redraw 3.9 mmol/L (3.5-5.0)
[2021-06-23] MEDS: Insulin GLARGINE 100 un/ml 10 ml VIAL SUBCUT SCH (20:40)
[2021-06-23] MEDS: cefTRIAXone 1 gm/50 mL NS BAG 1 GM/50 ML BAG IVPB SCH (20:43)
[2021-06-24] MEDS: Insulin GLARGINE 100 un/ml 10 ml VIAL SUBCUT SCH (20:54)
[2021-06-25] MEDS ORDERED: diPHENhydraMINE 25 mg TAB PO ONE (07:30)
[2021-06-25] MEDS: Insulin GLARGINE 100 un/ml 10 ml VIAL SUBCUT SCH (21:01)
[2021-06-26 06:38] VITALS: BP 100/50
== END 2021-06-26 13:20 | disposition home or self-care (01) | DRG 137 ==
LOC: PMRU 13:57
PROVIDERS: ADMIT Physical Medicine & Rehabilitation; ATTEND Physical Medicine & Rehabilitation